=== PATIENT | female | born 1990 | race Caucasian/White ===

== ENCOUNTER 2019-04-26 22:19 | Inpatient (IN) | payer BC ==
[~2019-04-26] VITALS: Ht 160 cm; Wt 87.7 kg
[2019-04-26] VITALS (28 sets, daily range): BP systolic 108; BP diastolic 71; PULSE 90; TEMP 98.1; O2SAT 95–99
--- NOTE | 2019-04-26 11:58 | NUR ---
RECIEVED REPORT FROM DANUTA YOON FROM RECOVERY ROOM. PT STABLE AND RETURNING BACK TO ICU. CYSTO DONE AND STENT PLACED IN LEFT URETER
[2019-04-26 23:07] LABS: MEAN CELL VOLUME 87 fl (80.0-100.0); MEAN CORPUSCULAR HEMOGLOBIN 29 pg (27.0-31.0); MEAN CORPUSCULAR HGB CONC 33 g/dl (33.0-37.0); MEAN PLATELET VOLUME 9.1 fl (7.4-10.4); PLATELET COUNT 182 K/mm3 (130-400); RED BLOOD COUNT 4.17 M/mm3 (4.10-5.30); REDCELL DISTRIBUTION WIDTH-CV 12.6 % (11.5-14.5)
[2019-04-26 23:09] LABS: HEMATOCRIT 36.2 % (37.0-47.0)
[2019-04-26 23:16] LABS: CALCIUM 8.3 mg/dL (8.4-10.2); CREATININE, serum 1.09 (0.52-1.25); POTASSIUM 4.2 mmol/L (3.4-5.0)
[2019-04-27] VITALS (761 sets, daily range): BP systolic 91–133; BP diastolic 56–79; PULSE 80–119; TEMP 97.8–102.3; O2SAT 71–100
[2019-04-27] MEDS ORDERED: ROXICODONE 55 MG/TAB PO (02:10)
[2019-04-27] MEDS ORDERED: ZOFRAN ODT4 MG PO (02:11)
[2019-04-27 06:11] LABS: BASO % 0.2 % (0.0-2.0); GRAN # 8.3 (1.4-6.5); GRAN % 82.7 % (42.2-75.2); HEMATOCRIT 37.6 % (37.0-47.0); HEMOGLOBIN 12.8 g/dl (12.5-16.0); LYMPH # 0.7 (1.2-3.4); LYMPH % 7.3 % (20.0-51.0); MEAN CELL VOLUME 86 fl (80.0-100.0); MEAN CORPUSCULAR HEMOGLOBIN 29 pg (27.0-31.0); MEAN CORPUSCULAR HGB CONC 34 g/dl (33.0-37.0); MEAN PLATELET VOLUME 9.6 fl (7.4-10.4); MONO # 0.9 (0.1-0.6); MONO % 9.3 % (1.7-9.3); PLATELET COUNT 122 K/mm3 (130-400); RED BLOOD COUNT 4.39 M/mm3 (4.10-5.30); REDCELL DISTRIBUTION WIDTH-CV 12.9 % (11.5-14.5)
[2019-04-27 07:05] LABS: CALCIUM 8.1 mg/dL (8.4-10.2); CREATININE, serum 0.8 (0.52-1.25); POTASSIUM 4.5 mmol/L (3.4-5.0)
--- NOTE | 2019-04-27 07:35 | NUR ---
GAVE REPORT TO DANUTA DENNISON AT PT BEDSIDE.
--- NOTE | 2019-04-27 14:14 | NUR ---
[facility] CALLED TO FOLLOW UP ON ANY CULTURES. WAS INFORMED THAT PT'S BC WERE CANCELLED AND URINE CULTURE PENDING. WILL ENDORSE TO FOLLOWING RN TO FOLLOW UP WITH.
--- NOTE | 2019-04-27 14:16 | NUR ---
ATTEMPTED TO CALL REPORT TO RN ON SURGICAL. STATES THEY WILL CALL BACK IN 10.
--- NOTE | 2019-04-27 14:29 | NUR ---
JERRY TIPTON CALLED THIS RN FOR REPORT. ALL [place] ANSWERED.
--- NOTE | 2019-04-27 14:53 | NUR ---
Sales Record Clerk met with the patient and patient's parents Jessica (ph#[phone]) and Rajan (ph#[phone]) to discuss discharge planning. Patient lives alone in [place] and does not have primary care set up. Patient states she would want to set up primary care in [place] so provided list of [place] primary care providers. Patient obtains needed medications from [facility] in [place] with no difficulties. Patient does not use any DME and is independent with [facility]. Patient plans to return home upon discharge.
--- NOTE | 2019-04-27 15:00 | NUR ---
ATTEMPTED TO CALL REGARDING PT TRANSFER. NO ANSWER. CALL PLACED TO [facility] AND SPOKE WITH 'S RN REGARDING IF PT NEEDS TELE UPON TRANSFER. AWAITING CALL BACK.
--- NOTE | 2019-04-27 15:45 | NUR ---
PT WHEELED UP TO 348 WITH PARENTS. PT SETTLED IN BED WITH CALL LIGHT. JERRY TIPTON NOTIFIED OF PT'S ARRIVAL.
--- NOTE | 2019-04-27 19:33 | NUR ---
Lying in bed with eyes open. Rating pain in low abd and left flank 5/10 and describes as a ache. Will administer pain medication as prescribed at this time. Patient denies further needs. Mother in room with patient.
--- NOTE | 2019-04-28 02:07 | NUR ---
Rates pain in left flank and lower abd 6/10 and describes as achy. Up to bathroom. Returns to bed. Administered pain medication as prescribed. Patient denies further needs at this time.
[2019-04-28 04:04] VITALS: BP 112/67; PULSE 103; TEMP 98.7
--- NOTE | 2019-04-28 04:27 | NUR ---
Lying in bed on right side with eyes closed. Eyes open when enter room. Rating pain 3/10 in left flank and abd, denies need for pain medication. Denies any needs or concerns at this time.
[2019-04-28 07:46] VITALS: BP 111/64; PULSE 75; TEMP 98.4
[2019-04-28 11:57] VITALS: BP 123/75; PULSE 100; TEMP 98.2
--- NOTE | 2019-04-28 14:35 | NUR ---
Plan: To return home with her parents vadim ([phone], and Pat [phone] as care support. Patient also listed her parents as her EMr, and declined a DPOA at this time indicating that she has no children or a spouse and so she knows that her parents would make all medical decisions on her behalf. Patient resides in [place]. Assess: SW met with patient at her bedside. Patient reported that she had goran SW and that she was already provided with a list of possible PCP's. Patient declined services at this time, and indicated that she was going to find a primary care provider and figure out where to botain medications. She indicated that she does not use any DME. Action: No additional concerns identified. Patient was educated on community resources and supports.
[2019-04-28 16:18] VITALS: BP 118/68; PULSE 100; TEMP 98.1
--- NOTE | 2019-04-28 18:09 | NUR ---
Contacted Dr. Jay about preliminary culture results. Patient would like to go home today. Contacted pharmacy and called in prescription for Cipro 500 mg BID for 7 days. ELLENB.
--- NOTE | 2019-04-28 19:30 | NUR ---
Pain relieved with prn Percocet. Afebrile. Dismissed to home with family.
== END 2019-04-28 19:30 | disposition home or self-care (01) | DRG 854 ==
LOC: ICU 22:19 → SURG 04-27 15:45
PROVIDERS: ADMIT Urology
PROC: 0T778DZ Dilation of Left Ureter with Intraluminal Device, Via Natural or Artificial Opening Endoscopic (ICD-10-PCS; principal; 2019-04-26 23:00)
PROC: BT1F1ZZ Fluoroscopy of Left Kidney, Ureter and Bladder using Low Osmolar Contrast (ICD-10-PCS; 2019-04-26 23:00)
DX: A41.9 Sepsis, unspecified organism (principal); N13.6 Pyonephrosis; Z90.49 Acquired absence of other specified parts of digestive tract; J45.909 Unspecified asthma, uncomplicated
CPT/HCPCS: A4314; C1769; C2617; J0690; J1885; J2250; J2270; J2405; J2543; J2704; J3010; Q9967

== ENCOUNTER 2019-05-11 06:25 | Day surgery (SDC) | payer BC ==
[~2019-05-11] VITALS: Ht 161.3 cm; Wt 86.0 kg
[~2019-05-11 06:25] MED LIST: ROXICODONE 55 MG/TAB PO; ZOFRAN ODT4 MG PO
[2019-05-11 07:18] VITALS: BP 112/65; PULSE 99; TEMP 97.5
[2019-05-11] MEDS ORDERED: DESOGEN PO (07:24)
[2019-05-11] MEDS ORDERED: IBU800 M1 PO (07:25)
[2019-05-11 09:04] VITALS: TEMP 97.7
[2019-05-11 09:20] VITALS: BP 123/70; PULSE 74
--- NOTE | 2019-05-11 09:20 | NUR ---
Patient returns to room 7 per cart from PACU and arouses to verbal stimuli. IV fluids infusing #18G RH and site is free of redness. Siderails up x2 and call light in reach. Call light in reach. Mother in room. States that she has a headache but this is becoming less. Offered fluids and states that she just wants to sleep. Denies other pain or nausea.
[2019-05-11 09:35] VITALS: BP 122/73; PULSE 67
--- NOTE | 2019-05-11 09:35 | NUR ---
States that her headache is tolerable and just wants to sleep.
[2019-05-11 09:50] VITALS: BP 112/70; PULSE 70
--- NOTE | 2019-05-11 09:50 | NUR ---
Patient continues to sleep without complaints.
[2019-05-11 10:05] VITALS: BP 110/70; PULSE 66
--- NOTE | 2019-05-11 10:05 | NUR ---
Assisted up to the bathroom and gait is steady. Voids and returns to room. Eating muffin and drinking apple juice. IV to INT.
--- NOTE | 2019-05-11 10:30 | NUR ---
Continues to sip on water and eat muffin and denies pain or nausea.
--- NOTE | 2019-05-11 10:40 | NUR ---
IV discontinued and patient is able to dress self. Continues to deny pain or nausea.
--- NOTE | 2019-05-11 10:48 | NUR ---
Dismissal instructions given and signed. Verbalizes understanding of home cares and follow up as scheduled. Provided office number for questions and concerns.
--- NOTE | 2019-05-11 10:50 | NUR ---
Patient dismissed to home driven by mother and taken to the front door per wheelchair and assisted into car by this RN with dismissal instructions in hand.
== END 2019-05-11 10:50 | disposition home or self-care (01) ==
LOC: SDCO 06:25
DX: N20.1 Calculus of ureter (principal); J45.909 Unspecified asthma, uncomplicated; Z87.440 Personal history of urinary (tract) infections; Z90.49 Acquired absence of other specified parts of digestive tract; Z88.0 Allergy status to penicillin; Z79.82 Long term (current) use of aspirin
CPT/HCPCS: C1769; C2617; J0690; J1100; J1885; J2250; J2405; J2550; J2704; J3010; J7120

== ENCOUNTER → 2023-06-24 | Outpatient (CLI) | payer BC ==
[~2023-06-24] MED LIST changes: +DESOGEN PO; +IBU800 M1 PO; +Iohexol 300 - 100 ML VIAL IV ONE; +NS 100 ML IV SCH
== END ==
LOC: COL.RAD 14:20
DX: R91.1 Solitary pulmonary nodule (principal)
CPT/HCPCS: Q9967

== ENCOUNTER → 2023-08-10 | Outpatient (CLI) | payer BC ==
[~2023-08-10] MED LIST changes: +Albuterol 0.083% Neb Soln 2.5 MG/3 ML UD IH ONE; -Iohexol 300 - 100 ML VIAL IV ONE; -NS 100 ML IV SCH
== END ==
LOC: COL.CARD 14:52
DX: J42 Unspecified chronic bronchitis (principal); R91.1 Solitary pulmonary nodule